=== PATIENT | female | born 1980 | race Caucasian/White ===

== ENCOUNTER 2017-06-08 01:56 | Emergency (ER) | payer SELFPAY ==
[~2017-06-08] VITALS: Ht 162.6 cm; Wt 99.5 kg
[2017-06-08 02:03] VITALS: BP 124/69; PULSE 73; RESP 16; TEMP 97.5; O2SAT 100
[2017-06-08] MEDS ORDERED: ZOFR4TAB3 SL (02:38)
--- NOTE | 2017-06-08 02:38 | PD ---
HPI Chief Complaint: GI Complaint Time Seen by Provider: 02:29 Travel History International Travel<30 days: No Contact w/Intl Traveler<30days: No Traveled to known affect area: No History of Present Illness HPI 37-year-old female complains of nausea after eating a microwavable meal. No vomiting. No chest pain or shortness of breath. Onset gradual. Severity moderate. Modifying factor. She reports a similar episode occurred after eating the same microwavable brand food previously. [facility] Social History Tobacco Use: Yes Allergies-Medications (Allergen,Severity, Reaction): Coded Allergies: No Known Allergies (Unverified , 06/08/17) Review of Systems Except as stated in HPI: all other systems reviewed are Neg General / Constitutional: No: Fever Physical Exam Narrative GENERAL: 37-year-old female well-nourished well-developed Vital Signs Date Time Temp Pulse Resp B/P (MAP) Pulse Ox O2 Delivery O2 Flow Rate FiO2 06/08/17 02:03 97.5 73 16 124/69 (87) 100 Room Air SKIN: Warm and dry. HEAD: Atraumatic. Normocephalic. EYES: Pupils equal and round. No scleral icterus. No injection or drainage. ENT: No nasal bleeding or discharge. Mucous membranes pink and moist. NECK: Trachea midline. No JVD. CARDIOVASCULAR: Regular rate and rhythm. RESPIRATORY: No accessory muscle use. Clear to auscultation. Breath sounds equal bilaterally. GASTROINTESTINAL: Abdomen soft, non-tender, nondistended. Hepatic and splenic margins not palpable. MUSCULOSKELETAL: Extremities without clubbing, cyanosis, or edema. No obvious deformities. NEUROLOGICAL: Awake and alert. No obvious cranial nerve deficits. Motor grossly within normal limits. Five out of 5 muscle strength in the arms and legs. Normal speech. PSYCHIATRIC: Appropriate mood and affect; insight and judgment normal. Data Data Last Documented VS Vital Signs Date Time Temp Pulse Resp B/P (MAP) Pulse Ox O2 Delivery O2 Flow Rate FiO2 06/08/17 02:03 97.5 73 16 124/69 (87) 100 Room Air Orders Orders Ondansetron Odt (Zofran Odt) (06/08/17 02:45) [facility] Medical Decision Making Medical Screen Exam Complete: Yes Emergency Medical Condition: Yes Differential Diagnosis Constipation, Gastritis, Acute Cholecystitis, Biliary Colic, Pancreatitis, JIMENEZ , Hepatitis, Bowel Obstruction, Cystitis, Mesenteric Ischemia, AAA, Appendicitis , Renal Stone/Hydronephrosis, GERD, perforated viscous Narrative Course Zofran ODT. Prescription as below. Return precautions discussed. Diagnosis Primary Impression: Nausea Med/Other Pt SpecificInfo: Prescription(s) given Scripts Ondansetron Odt (Zofran Odt) 4 Mg Tab 4 MG SL Q8HR Y for Nausea/Vomiting, #10 TAB 0 Refills Prov: Pj Maravilla MD 06/08/17 Disposition: 01 DISCHARGE HOME Condition: Stable Pj Maravilla MD Jun 08, 2017 02:38
[2017-06-08] MEDS ORDERED: ONDANSETRON ODT 4 MG TAB PO ONE (02:45)
== END 2017-06-08 03:06 | disposition home or self-care (01) ==
LOC: NEPC 01:56
DX: R11.0 Nausea (principal); Z72.0 Tobacco use
CPT/HCPCS: 99283